=== PATIENT | male | born 1990 | race Hispanic/Latino ===

== ENCOUNTER 2016-12-30 18:09 | Emergency (ER) | payer SELFPAY ==
--- NOTE | 2016-12-30 18:46 | Emergency Department Report ---
Chief Complaint: Back Pain/Injury Stated Complaint: SEVERE BACK PAIN Time Seen by Provider: 12/30/16 18:42 - HPI History of Present Illness: PT c/o back injury today. Pt states he hurt his back bending forward. - ROS Review of Systems: + lbp + l hip pain + pain that radiates down left leg - Exam Physical Exam: thin male, no acute distress. no midline l spine tenderness on exam MSE screening note: Focused history and physical exam performed. Due to findings the following was ordered: ED Disposition for MSE Condition: Stable
[2016-12-30] MEDS ORDERED: FLEXERIL PO ONE (22:22)
[2016-12-30] MEDS ORDERED: TYLENOL #3 PO ONE (22:22)
--- NOTE | 2016-12-30 22:28 | Emergency Department Report ---
HPI - General Chief Complaint: Back Pain/Injury Time Seen by Provider: 12/30/16 18:42 - HPI HPI: This is a 26-year-old male presents to the ED complaining of left-sided foot low back pain that radiates down his foot. Patient states he went down today and his back started hurting. Patient has a history of trauma. He states he felt like his back gave out. Patient describes sharp pain shooting down his lower left back down his thigh. He denies fevers/chills/nausea/vomiting/trauma or any other problems ED Past Medical Hx - Past Medical History Previous Medical History?: No - Surgical History Additional Surgical History: rt leg surgery 2000 - Social History Smoking Status: Current Every Day Smoker Substance Use Type: None - Medications Home Medications: Home Medications Medication Instructions Recorded Confirmed Last Taken Type Ibuprofen [Motrin] 600 mg PO Q8H PRN #50 tablet 05/21/14 Unknown Rx Sulfamethoxazole/Trimethoprim 1 each PO BID #20 tablet 05/21/14 Unknown Rx [Bactrim Ds] Acetaminophen/Codeine [Tylenol 1 tab PO Q6H PRN #12 tab 12/30/16 Unknown Rx /Codeine # 3 tab] Cyclobenzaprine [Flexeril 10 MG 10 mg PO ONCE #24 tablet 12/30/16 Unknown Rx TAB] ED Review of Systems ROS: Stated complaint: SEVERE BACK PAIN Other details as noted in HPI Constitutional: denies: chills, fever Eyes: denies: eye pain, eye discharge, vision change ENT: denies: ear pain, throat pain Respiratory: denies: cough, shortness of breath, wheezing Cardiovascular: denies: chest pain, palpitations Endocrine: no symptoms reported Gastrointestinal: denies: abdominal pain, nausea, diarrhea Genitourinary: denies: urgency, dysuria, frequency, hematuria Musculoskeletal: myalgia. denies: back pain, joint swelling, arthralgia Skin: denies: rash, lesions Neurological: denies: headache, weakness, numbness, paresthesias, confusion Psychiatric: denies: anxiety, depression Hematological/Lymphatic: denies: easy bleeding, easy bruising Physical Exam - Physical Exam Vital Signs: Vital Signs 12/30/16 18:42 Temperature 98.7 F Pulse Rate 100 H Respiratory 18 Rate Blood Pressure 149/99 O2 Sat by Pulse 100 Oximetry Physical Exam: GENERAL: Alert and oriented x3, no apparent distress, Normal Gait, atraumatic. HEAD: Head is normocephalic and a-traumatic. LUNGS: Symetrical with respiration, No wheezing, no rales or crackles, CTAB. HEART: S1, S2 present, regular rate and rhythm without murmur, no rubs, no gallops. EXTREMITIES/MUSCULOSKELETAL: No cyanosis, clubbing, rash, lesions or edema. Full ROM bilaterally. UE/LE Pulses 2+ bilaterally. LE and UE 5+ strength bilaterally, straight leg raise positive left sided , no spinal tenderness. NEUROLOGIC: The patient is cooperative with no focal neurologic deficits. Cranial nerves II through XII are grossly intact. SKIN: Warm and dry, No lesions, No ulceration or induration present. ED Course Vital Signs 12/30/16 18:42 Temperature 98.7 F Pulse Rate 100 H Respiratory 18 Rate Blood Pressure 149/99 O2 Sat by Pulse 100 Oximetry ED Medical Decision Making - Medical Decision Making 26-year-old male presents with lumbar radiculopathy ED course: Patient given Flexeril and Tylenol with Codeine ED Discussed the patient's follow up with primary care physician. Patient is alert and oriented 3 in no acute distress Instructions given and states he will follow-up As instructed. Critical care attestation.: If time is entered above; I have spent that time in minutes in the direct care of this critically ill patient, excluding procedure time. ED Disposition Clinical Impression: Myalgia, Lumbar radicular pain Disposition: - TO HOME OR SELFCARE Is pt being admited?: No Does the pt Need Aspirin: No Condition: Stable Instructions: Muscle Strain (ED), Musculoskeletal Pain (ED), Core Strengthening Exercises (GEN) Prescriptions: Acetaminophen/Codeine [Tylenol /Codeine # 3 tab] 1 tab PO Q6H PRN #12 tab PRN Reason: Pain Cyclobenzaprine [Flexeril 10 MG TAB] 10 mg PO ONCE #24 tablet Referrals: PRIMARY CARE, [Primary Care Provider] - 3-5 Days NETO AGUIRRE MD [Referring] - 3-5 Days MISAEL ACUNA MD [Staff Physician] - 3-5 Days SADIA DEUTSCH MD [Staff Physician] - 3-5 Days [facility] [Outside] - 3-5 Days [facility] [Outside] - 3-5 Days Forms: Work/School Release Form, Accompanied Note Time of Disposition: 22:52
[2016-12-30 23:15] VITALS: BP 120/74
== END 2016-12-30 23:41 | disposition home or self-care (01) ==
LOC: ED 18:09
DX: M54.5 Low back pain (principal); M79.1 Myalgia; F17.200 Nicotine dependence, unspecified, uncomplicated
CPT/HCPCS: 99282

== ENCOUNTER 2020-04-26 17:08 | Emergency (ER) | payer SELFPAY ==
[2020-04-26 18:45] VITALS: BP 148/89
--- NOTE | 2020-04-26 18:46 | Emergency Department Report ---
ED ENT HPI - General Stated complaint: THROAT PAIN EXTREME Time Seen by Provider: 04/26/20 18:41 - History of Present Illness Initial comments: This is a 30-year-old male nontoxic well in appearance with no signs of distress presents to the ED with complaint of sore throat x1 day. Mother and patient stated has been exposed with strep throat. Patient denies any drooling or hoarseness. Patient denies any other symptoms. Denies any chills, headache, nausea, vomiting, fever, chest pain or SOB. Denies any other complaints. MD complaint: sore throat -: days(s) Location: throat Severity: mild Severity scale (0 -10): 8 Quality: aching Consistency: constant Improves with: none Worsens with: swallowing Associated Symptoms: pain with swallowing, sore throat. denies: fever, cough, gum swelling, toothache, tinnitus, hearing loss, discharge from ear, rhinorrhea - Related Data Previous Rx's Medication Instructions Recorded Last Taken Type Ibuprofen [Motrin] 600 mg PO Q8H PRN #50 tablet 05/21/14 Unknown Rx Sulfamethoxazole/Trimethoprim 1 each PO BID #20 tablet 05/21/14 Unknown Rx [Bactrim Ds] Acetaminophen/Codeine [Tylenol 1 tab PO Q6H PRN #12 tab 12/30/16 Unknown Rx /Codeine # 3 tab] Cyclobenzaprine [Flexeril 10 MG 10 mg PO ONCE #24 tablet 12/30/16 Unknown Rx TAB] Amoxicillin [Amoxicillin TAB] 875 mg PO BID #20 tablet 04/26/20 Unknown Rx Allergies Allergy/AdvReac Type Severity Reaction Status Date / Time No Known Allergies Allergy Verified 05/21/14 00:13 ED Dental HPI - General Stated complaint: THROAT PAIN EXTREME Time Seen by Provider: 04/26/20 18:41 - Related Data Previous Rx's Medication Instructions Recorded Last Taken Type Ibuprofen [Motrin] 600 mg PO Q8H PRN #50 tablet 05/21/14 Unknown Rx Sulfamethoxazole/Trimethoprim 1 each PO BID #20 tablet 05/21/14 Unknown Rx [Bactrim Ds] Acetaminophen/Codeine [Tylenol 1 tab PO Q6H PRN #12 tab 12/30/16 Unknown Rx /Codeine # 3 tab] Cyclobenzaprine [Flexeril 10 MG 10 mg PO ONCE #24 tablet 12/30/16 Unknown Rx TAB] Amoxicillin [Amoxicillin TAB] 875 mg PO BID #20 tablet 04/26/20 Unknown Rx Allergies Allergy/AdvReac Type Severity Reaction Status Date / Time No Known Allergies Allergy Verified 05/21/14 00:13 ED Review of Systems ROS: Stated complaint: THROAT PAIN EXTREME Other details as noted in HPI Comment: All other systems reviewed and negative Constitutional: denies: chills, fever Eyes: denies: eye pain, eye discharge, vision change ENT: throat pain. denies: ear pain Respiratory: denies: cough, shortness of breath, wheezing Cardiovascular: denies: chest pain, palpitations Endocrine: no symptoms reported Gastrointestinal: denies: abdominal pain, nausea, diarrhea Genitourinary: denies: urgency, dysuria Musculoskeletal: denies: back pain, joint swelling, arthralgia Skin: denies: rash, lesions Neurological: denies: headache, weakness, paresthesias Psychiatric: denies: anxiety, depression Hematological/Lymphatic: denies: easy bleeding, easy bruising ED Past Medical Hx - Surgical History Additional Surgical History: rt leg surgery 2000 - Social History Smoking Status: Current Every Day Smoker Substance Use Type: None - Medications Home Medications: Home Medications Medication Instructions Recorded Confirmed Last Taken Type Ibuprofen [Motrin] 600 mg PO Q8H PRN #50 tablet 05/21/14 Unknown Rx Sulfamethoxazole/Trimethoprim 1 each PO BID #20 tablet 05/21/14 Unknown Rx [Bactrim Ds] Acetaminophen/Codeine [Tylenol 1 tab PO Q6H PRN #12 tab 12/30/16 Unknown Rx /Codeine # 3 tab] Cyclobenzaprine [Flexeril 10 MG 10 mg PO ONCE #24 tablet 12/30/16 Unknown Rx TAB] Amoxicillin [Amoxicillin TAB] 875 mg PO BID #20 tablet 04/26/20 Unknown Rx ED Physical Exam - General General appearance: alert, in no apparent distress - Head Head exam: Present: atraumatic, normocephalic - Eye Eye exam: Present: normal appearance - Expanded ENT Exam Expanded Ear exam: Present: normal external inspection Mouth exam: Present: normal external inspection, tongue normal. Absent: drooling, trismus, muffled voice Teeth exam: Present: normal inspection Throat exam: Positive: tonsillar erythema, tonsillomegaly (2+), tonsillar exudate, other (uvula midline). Negative: R peritonsillar mass, L peritonsillar mass - Neck Neck exam: Present: normal inspection, full ROM. Absent: tenderness, meningismus, lymphadenopathy - Respiratory Respiratory exam: Absent: respiratory distress - Cardiovascular Cardiovascular Exam: Present: regular rate - Extremities Exam Extremities exam: Present: full ROM - Back Exam Back exam: Present: full ROM - Neurological Exam Neurological exam: Present: alert, oriented X3, normal gait - Psychiatric Psychiatric exam: Present: normal affect, normal mood - Skin Skin exam: Present: warm, dry, intact, normal color. Absent: rash ED Course Vital Signs 04/26/20 18:43 Temperature 98.8 F Pulse Rate 104 H Respiratory 20 Rate Blood Pressure 148/89 O2 Sat by Pulse 99 Oximetry - Reevaluation(s) Reevaluation #1: 04/26/20 18:44 Patient is speaking in full sentences with no signs of distress noted. ED Medical Decision Making - Medical Decision Making Patient was instructed to Follow-up with a primary care doctor in 3-5 days or if symptoms worsen and continue return to emergency room as soon as possible. At time of discharge, the patient does not seem toxic or ill in appearance. No acute signs of distress noted. Patient agrees to discharge treatment plan of care. No further questions noted by the patient. Critical care attestation.: If time is entered above; I have spent that time in minutes in the direct care of this critically ill patient, excluding procedure time. ED Disposition Clinical Impression: Tonsillitis with exudate Disposition: DC-01 TO HOME OR SELFCARE Is pt being admited?: No Does the pt Need Aspirin: No Condition: Stable Instructions: Tonsillitis (ED) Additional Instructions: Follow-up with a primary care doctor in 3-5 days or if symptoms worsen and continue return to emergency room as soon as possible. Prescriptions: Amoxicillin [Amoxicillin TAB] 875 mg PO BID #20 tablet Referrals: PRIMARY CAREMD [Referring] - 3-5 Days PEDRO PABLO BASS MD [Staff Physician] - 3-5 Days Forms: Work/School Release Form(ED)
== END 2020-04-26 18:54 | disposition home or self-care (01) ==
LOC: ED 17:08
DX: J03.90 Acute tonsillitis, unspecified (principal); F17.200 Nicotine dependence, unspecified, uncomplicated; Z79.899 Other long term (current) drug therapy; Z98.890 Other specified postprocedural states
CPT/HCPCS: 99281

== ENCOUNTER 2020-12-08 12:22 | Emergency (ER) | payer SELFPAY ==
[2020-12-08 12:30] VITALS: BP 132/80
--- NOTE | 2020-12-08 12:44 | Event Note ---
ED Screening Note Date of service: 12/08/20 Time: 12:43 ED Screening Note: 30-year-old male patient presents to the emergency department with complaints of epigastric abdominal pain, nausea, and vomiting for 3 days. Patient endorses 1- 2 episodes of black stools today. No known sick contacts. No current steroid or antibiotic use. No history of similar symptoms. Tachycardic in triage. General: Awake, appropriately interactive, no acute distress. Neck: Supple. Full range of motion intact. Cardiovascular: Normal peripheral perfusion. Pulmonary: No respiratory distress. Patient is speaking normally without use of accessory muscles. Skin: Diffuse erythematous maculopapular rash throughout trunk and extremities; patient states this has been present for a few months. Neurological: No facial asymmetry. Speech is clear. Follows commands. Patient is alert and oriented. Musculoskeletal: Moves all four extremities spontaneously with normal range of motion. Psych: Cooperative. Appropriate mood and affect. Initial labs ordered; decision to pursue further diagnostic work-up (i.e. devon ging) deferred to additional ED providers. I have greeted and performed a focused rapid initial assessment of this patient. A comprehensive ED assessment and evaluation of the patient, analysis of all test results, and completion of the medical decision-making process will be conducted by additional ED providers. This initial assessment/diagnostic orders/clinical plan/treatment(s) is/are subject to change based on patients health status, clinical progression and re-assessment. Further treatment and workup at subsequent clinical provider's discretion. Patient/guardian urged not to elope from the ED as their condition may be serious if not clinically assessed and managed.
[2020-12-08 13:30] LABS: Basophils % (Auto) 0.5 % (0.0-1.8); Eosinophils # (Auto) 0.5 K/mm3 (0.0-0.4); Eosinophils % (Auto) 6.2 % (0.0-4.3); Hemoglobin 15.2 gm/dl (11.8-15.2); Lymphocytes # (Auto) 1.7 K/mm3 (1.2-5.4); Lymphocytes % (Auto) 22.5 % (13.4-35.0); Mean Corpuscular HGB Conc 35 % (32-34); Mean Corpuscular Volume 84 fl (84-94); Monocytes # (Auto) 0.9 K/mm3 (0.0-0.8); Monocytes % (Auto) 11.5 % (0.0-7.3); Platelet Count 384 K/mm3 (140-440); Red Blood Count 5.25 M/mm3 (3.65-5.03); Red Cell Distribution Width 13.7 % (13.2-15.2)
[2020-12-08 13:49] LABS: Alanine Aminotransferase 10 units/L (7-56); Albumin 4.2 g/dL (3.9-5); Blood Urea Nitrogen 18 mg/dL (9-20); Calcium 9.4 mg/dL (8.4-10.2); Hemolysis Index 6
[2020-12-08 14:06] LABS: BUN/Creatinine Ratio 26
== END 2020-12-08 21:41 | disposition left against medical advice (07) ==
LOC: ED 12:22
DX: R10.9 Unspecified abdominal pain (principal); Z53.21 Procedure and treatment not carried out due to patient leaving prior to being seen by health care provider
CPT/HCPCS: 36415; 80053; 83690; 83735; 85025